=== PATIENT | female | born 1935 ===

== ENCOUNTER 2019-12-28 09:55 | Outpatient (CLI) | payer OTHER ==
[~2019-12-28 09:55] MED LIST: DIOVAN40 MG
== END 2019-12-28 12:50 | disposition home or self-care (01) ==
LOC: RAD 09:55
DX: M94.0 Chondrocostal junction syndrome [Tietze] (principal); F41.1 Generalized anxiety disorder; R10.10 Upper abdominal pain, unspecified

== ENCOUNTER 2020-01-25 12:37 | Outpatient (CLI) | payer OTHER | END 2020-01-27 06:41 | disposition home or self-care (01) | LOC: SONOGRAMA 12:37 | DX: N30.00 Acute cystitis without hematuria (principal); K77 Liver disorders in diseases classified elsewhere; R19.09 Other intra-abdominal and pelvic swelling, mass and lump ==